=== PATIENT | male | born 1995 | race Caucasian/White ===

== ENCOUNTER 2024-07-26 21:45 | Emergency (ER) | payer OTHER ==
[~2024-07-26] VITALS: Ht 180.3 cm; Wt 122.5 kg
[2024-07-26 22:42] VITALS: TEMP 98.6
[2024-07-26 23:50] LABS: BASOPHILS % (AUTO) 0.5 % (0.0-2.0); EOSINOPHILS # (AUTO) 0.1 K/uL (0.0-0.7); EOSINOPHILS % (AUTO) 1.7 % (0.0-6.0); HEMATOCRIT 41 % (39-51); HEMOGLOBIN 13.9 g/dL (13.5-17.5); LYMPHOCYTES # (AUTO) 2.5 K/uL (0.8-4.8); LYMPHOCYTES % (AUTO) 33.9 % (20.0-44.0); MEAN CORPUSCULAR HEMOGLOBIN 29 PG (26.0-33.0); MEAN CORPUSCULAR HGB CONC 34 g/dl (31.0-36.0); MEAN CORPUSCULAR VOLUME 86 fL (80-96); MONOCYTES # (AUTO) 0.7 K/uL (0.1-1.30); MONOCYTES % (AUTO) 9.2 % (2.0-12.0); NEUTROPHILS # (AUTO) 4.1 K/uL (1.8-8.9); NEUTROPHILS % (AUTO) 54.7 % (43.0-81.0); PLATELET COUNT (AUTO) 220 K/uL (150-450); RED BLOOD CELL COUNT(AUTO) 4.74 MIL/uL (4.5-6.0); RED CELL DISTRIBUTION WIDTH 13.9 % (11.5-15.0); WHITE BLOOD COUNT (AUTO) 7.4 K/uL (4.3-11.0)
[2024-07-26 23:53] LABS: ERYTHROCYTE SEDIMENTATION RATE 8 MM/HR (0-15)
[2024-07-27 00:01] LABS: CALCIUM, SERUM 9.4 mg/dL (8.5-10.1); CREATININE 0.8 mg/dL (0.6-1.3); POTASSIUM 3.8 mmol/L (3.5-5.1)
[2024-07-27 00:07] LABS: ALBUMIN 4.4 g/dL (3.4-5.0); BILIRUBIN,TOTAL 0.3 mg/dL (0.2-1.0); TOTAL PROTEIN, SERUM 8.2 g/dL (6.4-8.2)
[2024-07-27 01:32] VITALS: BP 138/88; O2SAT 99
== END 2024-07-27 01:33 | disposition home or self-care (01) ==
LOC: ER 21:56
DX: R25.2 Cramp and spasm (principal); R20.0 Anesthesia of skin; M79.651 Pain in right thigh; Z60.2 Problems related to living alone
CPT/HCPCS: 36415; 80053-TC; 82550-TC; 85025-TC; 85652-TC; 93926-TC; 93971-TC

== ENCOUNTER 2024-09-29 13:51 | Emergency (ER) | payer OTHER ==
[~2024-09-29] VITALS: Ht 177.8 cm; Wt 122.5 kg
[2024-09-29] MEDS ORDERED: KETOROLAC TROMETHAMINE INJ 30 MG/ML VIAL ONE (14:37)
[2024-09-29] MEDS: KETOROLAC TROMETHAMINE INJ 30 MG/ML VIAL IV ONE (14:41)
[2024-09-29 15:02] LABS: BASOPHILS % (AUTO) 0.6 % (0.0-2.0); HEMATOCRIT 37 % (39-51); HEMOGLOBIN 12.6 g/dL (13.5-17.5); LYMPHOCYTES # (AUTO) 1.1 K/uL (0.8-4.8); LYMPHOCYTES % (AUTO) 22.3 % (20.0-44.0); MEAN CORPUSCULAR HEMOGLOBIN 29 PG (26.0-33.0); MEAN CORPUSCULAR HGB CONC 34 g/dl (31.0-36.0); MEAN CORPUSCULAR VOLUME 86 fL (80-96); MONOCYTES # (AUTO) 0.6 K/uL (0.1-1.30); MONOCYTES % (AUTO) 13.2 % (2.0-12.0); NEUTROPHILS % (AUTO) 62.9 % (43.0-81.0); PLATELET COUNT (AUTO) 177 K/uL (150-450); RED BLOOD CELL COUNT(AUTO) 4.33 MIL/uL (4.5-6.0); RED CELL DISTRIBUTION WIDTH 13.7 % (11.5-15.0); WHITE BLOOD COUNT (AUTO) 4.8 K/uL (4.3-11.0)
[2024-09-29 15:15] LABS: CALCIUM, SERUM 8.9 mg/dL (8.5-10.1); CARBON DIOXIDE 33 mmol/L (21-32); CHLORIDE 105 mmol/L (98-107); CREATININE 0.9 mg/dL (0.6-1.3); GLUCOSE 74 mg/dL (74-106); POTASSIUM 3.9 mmol/L (3.5-5.1); SODIUM SERUM 143 mmol/L (136-145); UREA NITROGEN, BLOOD 13 mg/dL (7-18)
[2024-09-29] MEDS ORDERED: IOHEXOL-350 100 ML VIAL IV ONE (15:42)
[2024-09-29] MEDS ORDERED: IV NS 0.9% 250 ML IV ONE (15:42)
[2024-09-29] MEDS ORDERED: IBUP-1490 PO (17:12)
[2024-09-29 17:20] VITALS: BP 122/82; TEMP 98.4; O2SAT 98
== END 2024-09-29 17:20 | disposition home or self-care (01) ==
LOC: ER 14:01
DX: R07.89 Other chest pain (principal); M54.6 Pain in thoracic spine
CPT/HCPCS: 99285; 96374; 71275; 71045; 93005; 85025; 80048; 85378; 36415; 84484; J1885; J7050; Q9967

== ENCOUNTER 2025-09-15 12:29 | Emergency (ER) | payer OTHER ==
[~2025-09-15] VITALS: Ht 180.3 cm; Wt 128.4 kg
[~2025-09-15 12:29] MED LIST: IBUP-1490 PO
[2025-09-15] MEDS ORDERED: MAG HYDROX/AL HYDROX/SIMETH 30 ML UDC ONE (12:49)
[2025-09-15] MEDS ORDERED: LIDOCAINE VISCOUS 2% UD 15 ML UDC ONE (12:49)
[2025-09-15] MEDS ORDERED: FAMOTIDINE/PF INJ 20 MG/2 ML VIAL IV ONE (12:49)
[2025-09-15] MEDS: FAMOTIDINE/PF INJ 20 MG/2 ML VIAL IV ONE (13:09)
[2025-09-15] MEDS: IV NS 0.9% 1,000 ML BAG IV ONE (13:09)
[2025-09-15] MEDS: LIDOCAINE VISCOUS 2% UD 15 ML UDC MM ONE (13:10)
[2025-09-15] MEDS: MAG HYDROX/AL HYDROX/SIMETH 30 ML UDC PO ONE (13:10)
[2025-09-15 13:53] LABS: SODIUM SERUM 134 mmol/L (136-145)
[2025-09-15 13:54] LABS: ASPARTATE AMINOTRANSFERASE 54 U/L (15-37); CALCIUM, SERUM 9.0 mg/dL (8.5-10.1); CREATININE 0.6 mg/dL (0.6-1.3); TOTAL PROTEIN, SERUM 8.2 g/dL (6.4-8.2); UREA NITROGEN, BLOOD 16 mg/dL (7-18)
[2025-09-15 13:59] LABS: PLATELET COUNT (AUTO) 237 K/uL (150-450); RED BLOOD CELL COUNT(AUTO) 4.63 MIL/uL (4.5-6.0); RED CELL DISTRIBUTION WIDTH 13.5 % (11.5-15.0); WHITE BLOOD COUNT (AUTO) 8.0 K/uL (4.3-11.0)
[2025-09-15] MEDS ORDERED: FAMO-131 PO (14:05)
[2025-09-15] MEDS ORDERED: ONDA4TAB5 PO (14:05)
[2025-09-15 14:34] VITALS: BP 133/81; TEMP 98.3; O2SAT 98
== END 2025-09-15 14:34 | disposition home or self-care (01) ==
LOC: ER 12:33
DX: K30 Functional dyspepsia (principal); R00.2 Palpitations
CPT/HCPCS: 99285; 96374; 71045; 96361; 93005 ×2; 85025; 80048; 83690; 80076; 36415; 84443; 84484; J1308; J7030